=== PATIENT | female | born 1945 | race Caucasian/White ===

== ENCOUNTER → 2017-04-15 | Outpatient (CLI) | payer OTHER, MEDICARE | LOC: CIMAGING 10:28 | DX: Z12.31 Encounter for screening mammogram for malignant neoplasm of breast (principal) | CPT/HCPCS: G0202 ==

== ENCOUNTER → 2018-05-17 | Outpatient (CLI) | payer OTHER, MEDICARE | LOC: CIMAGING 12:44 | PROVIDERS: ATTEND Internal Medicine | DX: Z12.31 Encounter for screening mammogram for malignant neoplasm of breast (principal) ==

== ENCOUNTER → 2018-07-07 | Outpatient (CLI) | payer OTHER, MEDICARE | LOC: CIMAGING 08:02 | PROVIDERS: ATTEND Nurse Practitioner | DX: R10.84 Generalized abdominal pain (principal); R19.4 Change in bowel habit; R11.0 Nausea; K76.0 Fatty (change of) liver, not elsewhere classified; R93.5 Abnormal findings on diagnostic imaging of other abdominal regions, including retroperitoneum | CPT/HCPCS: 76705-PO ==

== ENCOUNTER → 2019-05-18 | Outpatient (CLI) | payer OTHER, MEDICARE | LOC: CIMAGING 12:51 ==